=== PATIENT | female | born 1985 | race Caucasian/White ===

== ENCOUNTER 2022-03-12 15:38 | Emergency (ER) | payer OTHER ==
[2022-03-12 17:05] LABS: BASOPHIL 0.2 % (0-2); EOSINOPHIL 1.5 % (0-5); HGB 11.2 g/dl (12.5-16.0); LYMPHOCYTE 9.9 % (15-48); MCHC 31.1 g/dL (32.0-36.0); MCV 83.5 fL (78.0-100.0); MONOCYTE 5.2 % (0-12); MPV 9.4 fL (6.0-9.5); NEUTROPHIL 82.8 % (41-80); NRBC 0; PLT 409 K/uL (150-400); RBC 4.31 M/uL (4.20-5.40); RDW 16.5 % (11.5-14.0)
[2022-03-12 17:54] LABS: BILIRUBIN NEGATIVE (NEGATIVE); BLOOD 2+ Ery/uL (NEGATIVE); CLARITY CLEAR (CLEAR); COLOR YELLOW (YELLOW); GLUCOSE (U) 3+ mg/dL (NORMAL); LEUKOCYTES NEGATIVE Leu/uL (NEGATIVE); NITRITE NEGATIVE (NEGATIVE); PROTEIN NEGATIVE (NEGATIVE); SPECIFIC GRAVITY 1.015 (1.001-1.030); UROBILINOGEN 0.2 mg/dL (0.2-1.0); pH 5.5 (5.0-9.0)
[2022-03-12 17:55] LABS: ALBUMIN 3.8 g/dL (3.4-5.0); CREATININE 0.47 mg/dL (0.51-0.95); GLOBULIN (CALCULATION) 3.8 g/dL; POTASSIUM 3.6 mmol/L (3.5-5.1); TOTAL PROTEIN 7.6 g/dL (6.4-8.2)
[2022-03-12 17:56] LABS: BILIRUBIN - TOTAL 0.7 mg/dL (0.2-1.0)
[2022-03-12] MEDS ORDERED: BENTYL10 MG PO (18:32)
[2022-03-12] MEDS ORDERED: ONDANSETRON ODT4 MG PO (18:32)
[2022-03-12 18:43] LABS: CORONAVIRUS 2019 SARS-COV-2 NEGATIVE (NEGATIVE); INFLUENZA A NAA NEGATIVE (NEGATIVE)
== END 2022-03-12 19:54 | disposition home or self-care (01) ==
LOC: FER 15:38
PROVIDERS: Internal Medicine
DX: E10.65 Type 1 diabetes mellitus with hyperglycemia (principal); R19.7 Diarrhea, unspecified; F17.210 Nicotine dependence, cigarettes, uncomplicated; Z20.822 Contact with and (suspected) exposure to COVID-19; Z98.890 Other specified postprocedural states
CPT/HCPCS: 36415; 36600; 80053; 81001; 82009; 82803; 83690; 85025; J2405; J7030; U0002